=== PATIENT | female | born 1955 | race Two or more races ===

== ENCOUNTER 2019-06-23 12:23 | Outpatient (CLI) | payer OTHER ==
[~2019-06-23] VITALS: Ht 149.9 cm; Wt 43.1 kg
== END 2019-06-23 14:21 | disposition home or self-care (01) ==
LOC: OFIC 805 12:23
DX: H90.42 Sensorineural hearing loss, unilateral, left ear, with unrestricted hearing on the contralateral side (principal); H61.23 Impacted cerumen, bilateral
CPT/HCPCS: 69210; 99203; G0463

== ENCOUNTER 2020-01-31 10:12 | Outpatient (CLI) | payer OTHER | END 2020-01-31 17:22 | disposition home or self-care (01) | LOC: OFIC 805 10:12 | PROVIDERS: ATTEND Otolaryngology | DX: H90.42 Sensorineural hearing loss, unilateral, left ear, with unrestricted hearing on the contralateral side (principal); H61.23 Impacted cerumen, bilateral ==

== ENCOUNTER → 2020-05-29 | Outpatient (CLI) | payer OTHER | END | disposition home or self-care (01) | LOC: OFIC 805 09:00 | PROVIDERS: ATTEND Otolaryngology | DX: H93.8X3 Other specified disorders of ear, bilateral (principal); H61.23 Impacted cerumen, bilateral; H90.3 Sensorineural hearing loss, bilateral ==

== ENCOUNTER 2020-10-18 08:50 | Outpatient (CLI) | payer OTHER | END 2020-10-18 10:06 | disposition home or self-care (01) | LOC: OFIC 805 08:50 | PROVIDERS: ATTEND Otolaryngology | DX: H90.3 Sensorineural hearing loss, bilateral (principal); H93.8X3 Other specified disorders of ear, bilateral; H61.23 Impacted cerumen, bilateral ==